=== PATIENT | male | born 1990 | race African-American/Black ===

== ENCOUNTER 2018-07-22 12:49 | Emergency (ER) | payer BC ==
[~2018-07-22] VITALS: Ht 172.7 cm; Wt 100.2 kg
[2018-07-22 13:10] VITALS: BP_SYST 154
[2018-07-22 14:25] VITALS: BP_SYST 154
== END 2018-07-22 14:25 | disposition home or self-care (01) ==
LOC: SED 12:49
DX: S76.101A Unspecified injury of right quadriceps muscle, fascia and tendon, initial encounter (principal); R03.0 Elevated blood-pressure reading, without diagnosis of hypertension; V43.52XA Car driver injured in collision with other type car in traffic accident, initial encounter; Y93.89 Activity, other specified; Y92.89 Other specified places as the place of occurrence of the external cause; Y99.8 Other external cause status
CPT/HCPCS: 99283